=== PATIENT | female | born 1965 | race African-American/Black ===

== ENCOUNTER 2018-08-17 00:51 | Inpatient (IN) | payer MEDICARE, MEDICAID ==
[2018-08-17 02:23] LABS: ADD MAN DIFF? NO
[2018-08-17 02:24] LABS: WHITE BLOOD COUNT 4.7 10^3/ul (4.8-10.8)
[2018-08-17 02:24] LABS: BASOPHILS % 0.8 % (0.0-2.0); EOSINOPHILS # 0.5 10^3/ul (0.0-0.5); EOSINOPHILS % 10.8 % (0.0-7.0); HEMATOCRIT 29.4 % (37.0-47.0); HEMOGLOBIN 9.1 g/dl (12.0-16.0); LYMPHOCYTES # 0.6 10^3/ul (0.8-2.9); LYMPHOCYTES % 12.9 % (15.0-51.0); MEAN CORPUSCULAR HEMOGLOBIN 27.7 pg (29.0-33.0); MEAN CORPUSCULAR VOLUME 89.6 fl (82.0-101.0); MEAN PLATELET VOLUME 9.4 fl (7.4-10.4); MONOCYTE # 0.5 10^3/ul (0.3-0.9); MONOCYTES % 9.7 % (0.0-11.0); NEUTROPHIL # 3.1 10^3/ul (1.6-7.5); NEUTROPHILS % 65.2 % (39.0-77.0); PLATELET COUNT 135 10^3/UL (140-415); RED BLOOD COUNT 3.28 10^6/ul (4.20-5.40); RED CELL DISTRIBUTION WIDTH 21.4 % (11.5-14.5)
[2018-08-17 02:42] LABS: ALANINE AMINOTRANSFERASE 22 IU/L (13-69); ALBUMIN 4.4 g/dl (3.3-4.9); ALBUMIN/GLOBULIN RATIO 1.22; ALKALINE PHOSPHATASE 240 IU/L (42-121); ANION GAP 24 (5-13); ASPARTATE AMINO TRANSFERASE 26 IU/L (15-46); BILIRUBIN,INDIRECT 0.3 mg/dl (0-1.1); BILIRUBIN,TOTAL 0.3 mg/dl (0.2-1.3); BLOOD UREA NITROGEN 93 mg/dl (7-20); CALCIUM 9.2 mg/dl (8.4-10.2); CARBON DIOXIDE 20 mmol/L (21-31); CHLORIDE 97 mmol/L (97-110); CREATININE 12.21 mg/dl (0.44-1.00); Estimated GFR 4 mL/min (>60); GLUCOSE 94 mg/dl (70-220); POTASSIUM 5.7 mmol/L (3.5-5.1); SODIUM 141 mmol/L (135-144)
[2018-08-17 02:43] LABS: INR 1.36; PROTIME 16.9 Sec (11.9-14.9); PT RATIO 1.3
[2018-08-17 02:44] LABS: PARTIAL THROMBOPLASTIN TIME 40.8 Sec (23.0-35.0)
[2018-08-17 02:53] LABS: TROPONIN-I 0.106 ng/ml (0.000-0.120)
[2018-08-17 03:11] LABS: B-TYPE NATRIURETIC PEPTIDE 100000 PG/ML (0-125)
[2018-08-17] MEDS: LORAZEPAM 1 MG TAB PO (03:49)
[2018-08-17] MEDS ORDERED: ONDANSETRON 4 MG INJ IV (05:00)
[2018-08-17 05:53] LABS: ADD MAN DIFF? NO
[2018-08-17 06:03] LABS: BASOPHIL # 0.1 10^3/ul (0.0-0.1); BASOPHILS % 1.3 % (0.0-2.0); EOSINOPHILS # 0.5 10^3/ul (0.0-0.5); EOSINOPHILS % 10.9 % (0.0-7.0); HEMATOCRIT 28.4 % (37.0-47.0); LYMPHOCYTES # 0.7 10^3/ul (0.8-2.9); LYMPHOCYTES % 15.8 % (15.0-51.0); MEAN CORPUSCULAR HEMOGLOBIN 28.3 pg (29.0-33.0); MEAN CORPUSCULAR HGB CONC 31.7 g/dl (32.0-37.0); MEAN CORPUSCULAR VOLUME 89.3 fl (82.0-101.0); MEAN PLATELET VOLUME 10.2 fl (7.4-10.4); MONOCYTE # 0.5 10^3/ul (0.3-0.9); MONOCYTES % 11.1 % (0.0-11.0); NEUTROPHIL # 2.7 10^3/ul (1.6-7.5); NEUTROPHILS % 60.7 % (39.0-77.0); PLATELET COUNT 147 10^3/UL (140-415); RED BLOOD COUNT 3.18 10^6/ul (4.20-5.40); RED CELL DISTRIBUTION WIDTH 21.6 % (11.5-14.5)
[2018-08-17 06:03] LABS: WHITE BLOOD COUNT 4.5 10^3/ul (4.8-10.8)
[2018-08-17 06:16] LABS: CHOLESTEROL 76 mg/dl (100-200)
[2018-08-17 06:16] LABS: HDL CHOLESTEROL 25 mg/dl (37-92); LDL CHOLESTEROL,CALCULATED 29 mg/dl; TRIGLYCERIDES 108 mg/dl (0-149)
[2018-08-17 06:19] LABS: ALANINE AMINOTRANSFERASE 26 IU/L (13-69); ALBUMIN 4.2 g/dl (3.3-4.9); ALKALINE PHOSPHATASE 237 IU/L (42-121); ANION GAP 25 (5-13); ASPARTATE AMINO TRANSFERASE 26 IU/L (15-46); BILIRUBIN,INDIRECT 0.3 mg/dl (0-1.1); BILIRUBIN,TOTAL 0.3 mg/dl (0.2-1.3); BLOOD UREA NITROGEN 96 mg/dl (7-20); CALCIUM 9.2 mg/dl (8.4-10.2); CARBON DIOXIDE 20 mmol/L (21-31); CHLORIDE 96 mmol/L (97-110); CREATININE 12.21 mg/dl (0.44-1.00); Estimated GFR 4 mL/min (>60); GLUCOSE 93 mg/dl (70-220); POTASSIUM 5.6 mmol/L (3.5-5.1); SODIUM 141 mmol/L (135-144); TOTAL PROTEIN 7.7 g/dl (6.1-8.1)
[2018-08-17 06:29] LABS: PHOSPHORUS 10.4 mg/dl (2.5-4.9)
[2018-08-17 06:46] LABS: IRON 56 ug/dl (35-150)
[2018-08-17 06:52] LABS: MAGNESIUM 2.4 mg/dl (1.7-2.5)
[2018-08-17 06:55] LABS: % IRON SATURATION 22 % SAT (22-52); TOTAL IRON BINDING CAPACITY 259 ug/dl (241-421)
[2018-08-17] MEDS: HEPARIN 5,000 UNIT/1 ML VIAL SC ×3 (06:59→21:50)
[2018-08-17] MEDS: LIDOCAINE 1% (MPF) 5 ML VIAL SC (07:30)
[2018-08-17 07:56] LABS: HEMOGLOBIN A1C 5.7 % (0-5.9)
[2018-08-17] MEDS ORDERED: LIDOCAINE 1% (MPF) 30 ML INJ INJ (09:00)
[2018-08-17] MEDS: LORAZEPAM 2 MG INJ IV (09:24)
[2018-08-17] MEDS: LABETALOL HCL 20MG INJ IV (09:24)
[2018-08-17 09:40] LABS: CREATINE KINASE 69 IU/L (23-200)
[2018-08-17] MEDS: AMLODIPINE 5 MG TAB PO (09:51)
[2018-08-17 09:54] LABS: CK INDEX 2.5; TROPONIN-I 0.104 ng/ml (0.000-0.120)
[2018-08-17 17:06] LABS: CREATINE KINASE 67 IU/L (23-200)
[2018-08-17 17:20] LABS: TROPONIN-I 0.097 ng/ml (0.000-0.120)
[2018-08-17 20:53] LABS: HEPATITIS B SURFACE ANTIGEN NEGATIVE (NEGATIVE)
[2018-08-17 21:37] LABS: HEPATITIS B SURFACE ANTIBODY POSITIVE (NEGATIVE)
[2018-08-17] MEDS ORDERED: LORAZEPAM 2 MG INJ IV (23:00)
[2018-08-18] MEDS ORDERED: LORAZEPAM 2 MG INJ IM (04:00)
[2018-08-18] MEDS ORDERED: LORAZEPAM 0.5 MG TAB PO (04:00)
[2018-08-18] MEDS: DIPHENHYDRAMINE 50 MG CAP PO ×2 (04:04→12:18)
[2018-08-18] MEDS: HEPARIN 5,000 UNIT/1 ML VIAL SC ×3 (06:19→21:49)
[2018-08-18] MEDS: AMLODIPINE 5 MG TAB PO (08:21)
[2018-08-18] MEDS: LORAZEPAM 1 MG TAB PO (13:11)
[2018-08-18 14:26] LABS: ADD MAN DIFF? NO
[2018-08-18 14:28] LABS: ABNORMAL IP MESSAGE 1; BASOPHIL # 0.1 10^3/ul (0.0-0.1); EOSINOPHILS # 0.7 10^3/ul (0.0-0.5); EOSINOPHILS % 13.1 % (0.0-7.0); HEMATOCRIT 29.5 % (37.0-47.0); HEMOGLOBIN 9.3 g/dl (12.0-16.0); LYMPHOCYTES # 0.6 10^3/ul (0.8-2.9); LYMPHOCYTES % 11.9 % (15.0-51.0); MEAN CORPUSCULAR HEMOGLOBIN 28.3 pg (29.0-33.0); MEAN CORPUSCULAR HGB CONC 31.5 g/dl (32.0-37.0); MEAN CORPUSCULAR VOLUME 89.7 fl (82.0-101.0); MONOCYTE # 0.5 10^3/ul (0.3-0.9); MONOCYTES % 10.3 % (0.0-11.0); NEUTROPHIL # 3.2 10^3/ul (1.6-7.5); NEUTROPHILS % 63.3 % (39.0-77.0); PLATELET COUNT 158 10^3/UL (140-415); RED BLOOD COUNT 3.29 10^6/ul (4.20-5.40); RED CELL DISTRIBUTION WIDTH 21.5 % (11.5-14.5)
[2018-08-18 14:30] LABS: POSITIVE DIFF @See below
[2018-08-18 14:47] LABS: ALANINE AMINOTRANSFERASE 26 IU/L (13-69); ALBUMIN 4.5 g/dl (3.3-4.9); ALBUMIN/GLOBULIN RATIO 1.25; ALKALINE PHOSPHATASE 232 IU/L (42-121); ANION GAP 18 (5-13); ASPARTATE AMINO TRANSFERASE 23 IU/L (15-46); BILIRUBIN,INDIRECT 0.3 mg/dl (0-1.1); BILIRUBIN,TOTAL 0.3 mg/dl (0.2-1.3); BLOOD UREA NITROGEN 62 mg/dl (7-20); CALCIUM 9.1 mg/dl (8.4-10.2); CARBON DIOXIDE 25 mmol/L (21-31); CHLORIDE 96 mmol/L (97-110); CREATININE 8.81 mg/dl (0.44-1.00); Estimated GFR 6 mL/min (>60); GLUCOSE 163 mg/dl (70-220); INR 1.32; MAGNESIUM 2.2 mg/dl (1.7-2.5); POTASSIUM 4.4 mmol/L (3.5-5.1); PROTIME 16.5 Sec (11.9-14.9); PT RATIO 1.3; SODIUM 139 mmol/L (135-144); TOTAL PROTEIN 8.1 g/dl (6.1-8.1)
[2018-08-18 18:01] LABS: ADD MAN DIFF? NO
[2018-08-18 18:08] LABS: WHITE BLOOD COUNT 4.2 10^3/ul (4.8-10.8)
[2018-08-18 18:08] LABS: ABNORMAL IP MESSAGE 1; BASOPHIL # 0.1 10^3/ul (0.0-0.1); BASOPHILS % 1.2 % (0.0-2.0); EOSINOPHILS # 0.5 10^3/ul (0.0-0.5); EOSINOPHILS % 12.4 % (0.0-7.0); HEMATOCRIT 28.9 % (37.0-47.0); LYMPHOCYTES # 0.5 10^3/ul (0.8-2.9); LYMPHOCYTES % 11.7 % (15.0-51.0); MEAN CORPUSCULAR HGB CONC 31.1 g/dl (32.0-37.0); MEAN PLATELET VOLUME 9.6 fl (7.4-10.4); MONOCYTE # 0.5 10^3/ul (0.3-0.9); MONOCYTES % 12.2 % (0.0-11.0); NEUTROPHIL # 2.6 10^3/ul (1.6-7.5); NEUTROPHILS % 62.3 % (39.0-77.0); PLATELET COUNT 141 10^3/UL (140-415); RED BLOOD COUNT 3.21 10^6/ul (4.20-5.40); RED CELL DISTRIBUTION WIDTH 21.5 % (11.5-14.5)
[2018-08-18 18:27] LABS: ANION GAP 12 (5-13); BLOOD UREA NITROGEN 21 mg/dl (7-20); CALCIUM 9.3 mg/dl (8.4-10.2); CARBON DIOXIDE 29 mmol/L (21-31); CHLORIDE 100 mmol/L (97-110); CREATININE 3.26 mg/dl (0.44-1.00); Estimated GFR 18 mL/min (>60); GLUCOSE 107 mg/dl (70-220); PHOSPHORUS 3.1 mg/dl (2.5-4.9); POTASSIUM 4.2 mmol/L (3.5-5.1); SODIUM 141 mmol/L (135-144)
[2018-08-18 18:29] LABS: MAGNESIUM 2.1 mg/dl (1.7-2.5)
[2018-08-19] MEDS: HEPARIN 5,000 UNIT/1 ML VIAL SC ×3 (06:13→20:47)
[2018-08-19] MEDS: AMLODIPINE 5 MG TAB PO (09:37)
[2018-08-19] MEDS: LORAZEPAM 1 MG TAB PO (20:13)
[2018-08-19] MEDS: DIPHENHYDRAMINE 50 MG CAP PO (21:17)
[2018-08-20] MEDS: HEPARIN 5,000 UNIT/1 ML VIAL SC ×3 (06:23→21:40)
[2018-08-20] MEDS: LORAZEPAM 1 MG TAB PO ×2 (06:55→21:38)
[2018-08-20] MEDS: ACETAMINOPHEN 325 MG TAB PO (06:55)
[2018-08-20] MEDS: AMLODIPINE 5 MG TAB PO (08:17)
[2018-08-20] MEDS: DIPHENHYDRAMINE 50 MG CAP PO (10:37)
[2018-08-20 14:24] LABS: WHITE BLOOD COUNT 4.3 10^3/ul (4.8-10.8)
[2018-08-20 14:24] LABS: ABNORMAL IP MESSAGE 1; ADD MAN DIFF? NO; BASOPHILS % 0.5 % (0.0-2.0); EOSINOPHILS # 0.7 10^3/ul (0.0-0.5); EOSINOPHILS % 16.4 % (0.0-7.0); HEMATOCRIT 29.4 % (37.0-47.0); HEMOGLOBIN 9.1 g/dl (12.0-16.0); LYMPHOCYTES # 0.4 10^3/ul (0.8-2.9); LYMPHOCYTES % 10.1 % (15.0-51.0); MEAN CORPUSCULAR HEMOGLOBIN 28.4 pg (29.0-33.0); MEAN CORPUSCULAR VOLUME 91.9 fl (82.0-101.0); MEAN PLATELET VOLUME 9.3 fl (7.4-10.4); MONOCYTE # 0.5 10^3/ul (0.3-0.9); MONOCYTES % 10.5 % (0.0-11.0); NEUTROPHIL # 2.7 10^3/ul (1.6-7.5); NEUTROPHILS % 62.3 % (39.0-77.0); PLATELET COUNT 130 10^3/UL (140-415); RED CELL DISTRIBUTION WIDTH 21.7 % (11.5-14.5)
[2018-08-20 14:29] LABS: POSITIVE DIFF @See below
[2018-08-20 14:46] LABS: ALANINE AMINOTRANSFERASE 22 IU/L (13-69); ALBUMIN 4.4 g/dl (3.3-4.9); ALBUMIN/GLOBULIN RATIO 1.07; ALKALINE PHOSPHATASE 227 IU/L (42-121); ANION GAP 15 (5-13); ASPARTATE AMINO TRANSFERASE 26 IU/L (15-46); BILIRUBIN,INDIRECT 0.6 mg/dl (0-1.1); BILIRUBIN,TOTAL 0.6 mg/dl (0.2-1.3); BLOOD UREA NITROGEN 30 mg/dl (7-20); CALCIUM 9.3 mg/dl (8.4-10.2); CARBON DIOXIDE 31 mmol/L (21-31); CHLORIDE 95 mmol/L (97-110); CREATININE 3.98 mg/dl (0.44-1.00); Estimated GFR 14 mL/min (>60); GLUCOSE 119 mg/dl (70-220); INR 1.13; POTASSIUM 3.8 mmol/L (3.5-5.1); PROTIME 14.6 Sec (11.9-14.9); PT RATIO 1.1; SODIUM 141 mmol/L (135-144); TOTAL PROTEIN 8.5 g/dl (6.1-8.1)
[2018-08-21] MEDS: DIPHENHYDRAMINE 50 MG CAP PO (00:40)
[2018-08-21] MEDS: HEPARIN 5,000 UNIT/1 ML VIAL SC ×3 (05:51→21:06)
[2018-08-21] MEDS: ACETAMINOPHEN 325 MG TAB PO (06:24)
[2018-08-21] MEDS: AMLODIPINE 5 MG TAB PO (09:45)
[2018-08-21] MEDS: LORAZEPAM 1 MG TAB PO (09:45)
[2018-08-22 01:52] LABS: PHOSPHORUS 7.8 mg/dl (2.5-4.9)
[2018-08-22 01:52] LABS: MAGNESIUM 2.2 mg/dl (1.7-2.5)
[2018-08-22 02:12] LABS: ANION GAP 15 (5-13); BLOOD UREA NITROGEN 67 mg/dl (7-20); CALCIUM 9.1 mg/dl (8.4-10.2); CARBON DIOXIDE 24 mmol/L (21-31); CHLORIDE 99 mmol/L (97-110); CREATININE 6.66 mg/dl (0.44-1.00); Estimated GFR 8 mL/min (>60); GLUCOSE 127 mg/dl (70-220); POTASSIUM 4.8 mmol/L (3.5-5.1); SODIUM 138 mmol/L (135-144)
[2018-08-22] MEDS: DIPHENHYDRAMINE 50 MG CAP PO ×3 (02:29→21:19)
[2018-08-22 06:09] LABS: INR 1.29; PROTIME 16.2 Sec (11.9-14.9); PT RATIO 1.3
[2018-08-22] MEDS: HEPARIN 5,000 UNIT/1 ML VIAL SC ×3 (06:52→21:21)
[2018-08-22] MEDS: AMLODIPINE 5 MG TAB PO ×2 (07:51→21:19)
[2018-08-22] MEDS: LORAZEPAM 1 MG TAB PO (12:24)
[2018-08-22] MEDS: traMADol 50 MG TAB PO ×2 (13:32→21:20)
[2018-08-22] MEDS: ALPRAZOLAM 0.5 MG TAB PO (16:02)
[2018-08-22] MEDS: SEVELAMER CARBONATE 800 MG TABLET PO (17:40)
[2018-08-22] MEDS: BISACODYL (EC) 5 MG TAB PO (17:45)
[2018-08-22] MEDS: DOCUSATE SODIUM 100 MG CAP PO (17:45)
[2018-08-22] MEDS: PERMETHRIN 5% 60 GM CR TOP (21:22)
[2018-08-23] MEDS: DIPHENHYDRAMINE 50 MG CAP PO ×2 (03:31→12:09)
[2018-08-23] MEDS: traMADol 50 MG TAB PO (03:31)
[2018-08-23] MEDS: HEPARIN 5,000 UNIT/1 ML VIAL SC ×3 (06:01→21:37)
[2018-08-23] MEDS: AMLODIPINE 5 MG TAB PO ×2 (09:00→21:37)
[2018-08-23] MEDS: SEVELAMER CARBONATE 800 MG TABLET PO ×3 (09:10→17:38)
[2018-08-23] MEDS: ALPRAZOLAM 0.5 MG TAB PO (13:18)
[2018-08-23] MEDS: LIDOCAINE 1% (MPF) 5 ML VIAL SC (15:25)
[2018-08-23 16:06] LABS: HAAIG REFLEX REFLEX FILED
[2018-08-23 17:13] LABS: HEPATITIS B SURFACE ANTIGEN NEGATIVE (NEGATIVE)
[2018-08-23 17:31] LABS: HEPATITIS B CORE ANTIBODY NEGATIVE (NEGATIVE); HEPATITIS C VIRAL ANTIBODY NEGATIVE (NEGATIVE)
[2018-08-23 21:10] LABS: TROPONIN-I 0.065 ng/ml (0.000-0.120)
[2018-08-24] MEDS: ALPRAZOLAM 0.5 MG TAB PO (00:20)
[2018-08-24] MEDS: DIPHENHYDRAMINE 50 MG CAP PO (00:20)
[2018-08-24] MEDS: HEPARIN 5,000 UNIT/1 ML VIAL SC ×3 (05:24→21:52)
[2018-08-24] MEDS: AMLODIPINE 5 MG TAB PO ×3 (09:00→20:46)
[2018-08-24] MEDS: SEVELAMER CARBONATE 800 MG TABLET PO ×3 (10:13→17:34)
[2018-08-24 16:26] LABS: ADD MAN DIFF? NO
[2018-08-24 16:29] LABS: WHITE BLOOD COUNT 4.4 10^3/ul (4.8-10.8)
[2018-08-24 16:29] LABS: ABNORMAL IP MESSAGE 1; BASOPHIL # 0.1 10^3/ul (0.0-0.1); BASOPHILS % 1.6 % (0.0-2.0); EOSINOPHILS # 0.6 10^3/ul (0.0-0.5); EOSINOPHILS % 14.1 % (0.0-7.0); HEMATOCRIT 27.1 % (37.0-47.0); HEMOGLOBIN 8.8 g/dl (12.0-16.0); LYMPHOCYTES # 0.6 10^3/ul (0.8-2.9); LYMPHOCYTES % 12.5 % (15.0-51.0); MEAN CORPUSCULAR HEMOGLOBIN 28.7 pg (29.0-33.0); MEAN CORPUSCULAR HGB CONC 32.5 g/dl (32.0-37.0); MEAN CORPUSCULAR VOLUME 88.3 fl (82.0-101.0); MONOCYTE # 0.4 10^3/ul (0.3-0.9); MONOCYTES % 9.1 % (0.0-11.0); NEUTROPHIL # 2.8 10^3/ul (1.6-7.5); NEUTROPHILS % 62.5 % (39.0-77.0); PLATELET COUNT 160 10^3/UL (140-415); RED BLOOD COUNT 3.07 10^6/ul (4.20-5.40)
[2018-08-24 16:32] LABS: POSITIVE DIFF @See below
[2018-08-24 16:50] LABS: ANION GAP 23 (5-13); BLOOD UREA NITROGEN 120 mg/dl (7-20); CALCIUM 8.8 mg/dl (8.4-10.2); CARBON DIOXIDE 18 mmol/L (21-31); CHLORIDE 95 mmol/L (97-110); CREATININE 9.14 mg/dl (0.44-1.00); Estimated GFR 5 mL/min (>60); GLUCOSE 108 mg/dl (70-220); MAGNESIUM 2.5 mg/dl (1.7-2.5); POTASSIUM 5.7 mmol/L (3.5-5.1); SODIUM 136 mmol/L (135-144)
[2018-08-24 16:56] LABS: PHOSPHORUS 11.1 mg/dl (2.5-4.9)
[2018-08-25] MEDS: ALPRAZOLAM 0.5 MG TAB PO (00:32)
[2018-08-25] MEDS: HEPARIN 5,000 UNIT/1 ML VIAL SC ×3 (06:00→22:23)
[2018-08-25] MEDS: SEVELAMER CARBONATE 800 MG TABLET PO ×2 (08:00→12:17)
[2018-08-25] MEDS: AMLODIPINE 5 MG TAB PO (09:59)
[2018-08-25] MEDS: METOPROLOL 50 MG TAB PO (12:30)
[2018-08-25] MEDS: SEVELAMER CARBONATE 0.8 GM PKT PO (17:33)
[2018-08-25] MEDS: BUSPIRONE 5 MG TAB PO (21:45)
[2018-08-25] MEDS: MELATONIN 5 MG TABLET PO (21:45)
[2018-08-26] MEDS: AMLODIPINE 5 MG TAB PO ×3 (04:02→20:24)
[2018-08-26] MEDS: HEPARIN 5,000 UNIT/1 ML VIAL SC ×3 (06:37→22:11)
[2018-08-26 06:43] LABS: ADD MAN DIFF? NO
[2018-08-26 06:47] LABS: ABNORMAL IP MESSAGE 1; BASOPHIL # 0.1 10^3/ul (0.0-0.1); BASOPHILS % 1.6 % (0.0-2.0); EOSINOPHILS # 0.5 10^3/ul (0.0-0.5); EOSINOPHILS % 13.9 % (0.0-7.0); HEMATOCRIT 31.8 % (37.0-47.0); HEMOGLOBIN 9.6 g/dl (12.0-16.0); LYMPHOCYTES # 0.5 10^3/ul (0.8-2.9); LYMPHOCYTES % 14.2 % (15.0-51.0); MEAN CORPUSCULAR HEMOGLOBIN 27.7 pg (29.0-33.0); MEAN CORPUSCULAR HGB CONC 30.2 g/dl (32.0-37.0); MEAN CORPUSCULAR VOLUME 91.9 fl (82.0-101.0); MEAN PLATELET VOLUME 10.3 fl (7.4-10.4); MONOCYTE # 0.5 10^3/ul (0.3-0.9); MONOCYTES % 14.7 % (0.0-11.0); NEUTROPHILS % 55.3 % (39.0-77.0); PLATELET COUNT 133 10^3/UL (140-415); RED BLOOD COUNT 3.46 10^6/ul (4.20-5.40); RED CELL DISTRIBUTION WIDTH 21.8 % (11.5-14.5)
[2018-08-26 06:47] LABS: WHITE BLOOD COUNT 3.7 10^3/ul (4.8-10.8)
[2018-08-26 07:16] LABS: ANION GAP 14 (5-13); BLOOD UREA NITROGEN 39 mg/dl (7-20); CALCIUM 9.3 mg/dl (8.4-10.2); CARBON DIOXIDE 25 mmol/L (21-31); CHLORIDE 101 mmol/L (97-110); CREATININE 3.66 mg/dl (0.44-1.00); Estimated GFR 16 mL/min (>60); GLUCOSE 96 mg/dl (70-220); SODIUM 140 mmol/L (135-144)
[2018-08-26] MEDS: BUSPIRONE 5 MG TAB PO ×2 (08:24→20:23)
[2018-08-26] MEDS: SEVELAMER CARBONATE 0.8 GM PKT PO ×3 (08:24→17:22)
[2018-08-26] MEDS: METOPROLOL 50 MG TAB PO (08:24)
[2018-08-26] MEDS: ESCITALOPRAM 10 MG TAB PO (08:24)
[2018-08-26] MEDS: traMADol 50 MG TAB PO ×2 (10:02→20:24)
[2018-08-26] MEDS: DIPHENHYDRAMINE 25 MG CAP PO ×3 (10:02→22:11)
[2018-08-26] MEDS: ALPRAZOLAM 0.5 MG TAB PO (10:50)
[2018-08-26] MEDS: MELATONIN 5 MG TABLET PO (20:24)
[2018-08-27] MEDS: LEVETIRACETAM 500 MG TAB PO ×3 (00:30→21:35)
[2018-08-27] MEDS: traMADol 50 MG TAB PO (03:37)
[2018-08-27] MEDS: HEPARIN 5,000 UNIT/1 ML VIAL SC ×3 (05:10→21:37)
[2018-08-27] MEDS: AMLODIPINE 5 MG TAB PO ×2 (09:00→21:35)
[2018-08-27] MEDS: METOPROLOL 50 MG TAB PO (09:00)
[2018-08-27] MEDS: SEVELAMER CARBONATE 0.8 GM PKT PO ×3 (09:06→17:55)
[2018-08-27] MEDS: BUSPIRONE 5 MG TAB PO ×2 (09:07→21:35)
[2018-08-27] MEDS: ESCITALOPRAM 10 MG TAB PO (09:07)
[2018-08-27] MEDS ORDERED: DIPHENHYDRAMINE 50 MG INJ IV (09:30)
[2018-08-27] MEDS: ALPRAZOLAM 0.5 MG TAB PO (12:55)
[2018-08-27 13:57] LABS: ADD MAN DIFF? NO
[2018-08-27 13:58] LABS: WHITE BLOOD COUNT 3.1 10^3/ul (4.8-10.8)
[2018-08-27 13:58] LABS: ABNORMAL IP MESSAGE 1; BASOPHILS % 1.3 % (0.0-2.0); EOSINOPHILS # 0.2 10^3/ul (0.0-0.5); EOSINOPHILS % 5.4 % (0.0-7.0); HEMOGLOBIN 8.6 g/dl (12.0-16.0); LYMPHOCYTES # 0.3 10^3/ul (0.8-2.9); LYMPHOCYTES % 10.9 % (15.0-51.0); MEAN CORPUSCULAR HEMOGLOBIN 28.3 pg (29.0-33.0); MEAN CORPUSCULAR HGB CONC 30.7 g/dl (32.0-37.0); MEAN CORPUSCULAR VOLUME 92.1 fl (82.0-101.0); MEAN PLATELET VOLUME 9.2 fl (7.4-10.4); MONOCYTE # 0.4 10^3/ul (0.3-0.9); MONOCYTES % 12.2 % (0.0-11.0); NEUTROPHIL # 2.2 10^3/ul (1.6-7.5); NEUTROPHILS % 69.9 % (39.0-77.0); PLATELET COUNT 147 10^3/UL (140-415); RED BLOOD COUNT 3.04 10^6/ul (4.20-5.40); RED CELL DISTRIBUTION WIDTH 21.2 % (11.5-14.5)
[2018-08-27 13:59] LABS: POSITIVE DIFF @See below
[2018-08-27 14:16] LABS: ANION GAP 14 (5-13); BLOOD UREA NITROGEN 39 mg/dl (7-20); CALCIUM 9.2 mg/dl (8.4-10.2); CARBON DIOXIDE 27 mmol/L (21-31); CHLORIDE 98 mmol/L (97-110); Estimated GFR 12 mL/min (>60); GLUCOSE 174 mg/dl (70-220); POTASSIUM 4.3 mmol/L (3.5-5.1); SODIUM 139 mmol/L (135-144)
[2018-08-27] MEDS: MELATONIN 5 MG TABLET PO (21:35)
[2018-08-28] MEDS: HEPARIN 5,000 UNIT/1 ML VIAL SC ×3 (06:00→20:52)
[2018-08-28] MEDS: SEVELAMER CARBONATE 0.8 GM PKT PO ×4 (08:00→17:46)
[2018-08-28] MEDS: LEVETIRACETAM 500 MG TAB PO ×2 (08:39→20:46)
[2018-08-28] MEDS: ESCITALOPRAM 10 MG TAB PO (08:40)
[2018-08-28] MEDS: BUSPIRONE 5 MG TAB PO ×2 (08:40→20:46)
[2018-08-28] MEDS: METOPROLOL 50 MG TAB PO (08:41)
[2018-08-28] MEDS: AMLODIPINE 5 MG TAB PO ×2 (08:41→20:46)
[2018-08-28] MEDS: ALPRAZOLAM 0.5 MG TAB PO ×2 (10:27→20:46)
[2018-08-28] MEDS: traMADol 50 MG TAB PO (14:11)
[2018-08-28] MEDS: EPOETIN ALFA-EPBX (NON-ESRD 10,000 UNIT/ML VIAL SC (17:45)
[2018-08-28] MEDS: MELATONIN 5 MG TABLET PO (20:46)
[2018-08-29] MEDS: traMADol 50 MG TAB PO (00:21)
[2018-08-29] MEDS: HEPARIN 5,000 UNIT/1 ML VIAL SC ×3 (05:35→21:05)
[2018-08-29] MEDS: SEVELAMER CARBONATE 0.8 GM PKT PO ×3 (08:00→17:12)
[2018-08-29] MEDS: ALPRAZOLAM 0.5 MG TAB PO (09:37)
[2018-08-29] MEDS: BUSPIRONE 5 MG TAB PO ×2 (13:31→21:03)
[2018-08-29] MEDS: AMLODIPINE 5 MG TAB PO ×2 (13:31→21:03)
[2018-08-29] MEDS: LEVETIRACETAM 500 MG TAB PO ×2 (13:32→21:03)
[2018-08-29] MEDS: ESCITALOPRAM 10 MG TAB PO (13:32)
[2018-08-29] MEDS: METOPROLOL 50 MG TAB PO (13:32)
[2018-08-29] MEDS: MELATONIN 5 MG TABLET PO (21:03)
[2018-08-30] MEDS: HEPARIN 5,000 UNIT/1 ML VIAL SC ×3 (05:18→21:13)
[2018-08-30] MEDS: SEVELAMER CARBONATE 0.8 GM PKT PO ×3 (09:09→18:00)
[2018-08-30] MEDS: BUSPIRONE 5 MG TAB PO ×2 (09:09→21:11)
[2018-08-30] MEDS: AMLODIPINE 5 MG TAB PO ×2 (09:10→21:00)
[2018-08-30] MEDS: LEVETIRACETAM 500 MG TAB PO ×2 (09:10→21:11)
[2018-08-30] MEDS: METOPROLOL 50 MG TAB PO (09:10)
[2018-08-30] MEDS: ESCITALOPRAM 10 MG TAB PO (09:10)
[2018-08-30] MEDS: traMADol 50 MG TAB PO (18:34)
[2018-08-30] MEDS: MELATONIN 5 MG TABLET PO (21:11)
[2018-08-30] MEDS: ALPRAZOLAM 0.5 MG TAB PO (22:43)
[2018-08-30] MEDS: DIPHENHYDRAMINE 50 MG CAP PO (23:46)
[2018-08-31] MEDS: HEPARIN 5,000 UNIT/1 ML VIAL SC ×3 (05:18→21:40)
[2018-08-31] MEDS: SEVELAMER CARBONATE 0.8 GM PKT PO ×3 (08:00→17:21)
[2018-08-31] MEDS: BUSPIRONE 5 MG TAB PO ×2 (08:34→20:03)
[2018-08-31] MEDS: LEVETIRACETAM 500 MG TAB PO ×2 (08:34→20:03)
[2018-08-31] MEDS: ESCITALOPRAM 10 MG TAB PO (08:34)
[2018-08-31] MEDS: METOPROLOL 50 MG TAB PO (08:34)
[2018-08-31] MEDS: AMLODIPINE 5 MG TAB PO ×2 (08:35→20:12)
[2018-08-31 10:11] LABS: ADD MAN DIFF? NO
[2018-08-31 10:19] LABS: ABNORMAL IP MESSAGE 1; BASOPHILS % 0.8 % (0.0-2.0); EOSINOPHILS % 0.4 % (0.0-7.0); HEMATOCRIT 28.5 % (37.0-47.0); HEMOGLOBIN 8.9 g/dl (12.0-16.0); LYMPHOCYTES # 0.5 10^3/ul (0.8-2.9); LYMPHOCYTES % 9.9 % (15.0-51.0); MEAN CORPUSCULAR HEMOGLOBIN 28.3 pg (29.0-33.0); MEAN CORPUSCULAR HGB CONC 31.2 g/dl (32.0-37.0); MEAN CORPUSCULAR VOLUME 90.5 fl (82.0-101.0); MEAN PLATELET VOLUME 9.7 fl (7.4-10.4); MONOCYTE # 0.7 10^3/ul (0.3-0.9); MONOCYTES % 13.2 % (0.0-11.0); NEUTROPHIL # 3.9 10^3/ul (1.6-7.5); NEUTROPHILS % 75.1 % (39.0-77.0); PLATELET COUNT 185 10^3/UL (140-415); RED BLOOD COUNT 3.15 10^6/ul (4.20-5.40); RED CELL DISTRIBUTION WIDTH 21.2 % (11.5-14.5)
[2018-08-31 10:19] LABS: WHITE BLOOD COUNT 5.1 10^3/ul (4.8-10.8)
[2018-08-31 10:21] LABS: POSITIVE DIFF @See below
[2018-08-31 10:36] LABS: ANION GAP 16 (5-13); BLOOD UREA NITROGEN 53 mg/dl (7-20); CALCIUM 9.4 mg/dl (8.4-10.2); CARBON DIOXIDE 22 mmol/L (21-31); CHLORIDE 99 mmol/L (97-110); CREATININE 6.54 mg/dl (0.44-1.00); Estimated GFR 8 mL/min (>60); GLUCOSE 112 mg/dl (70-220); SODIUM 137 mmol/L (135-144)
[2018-08-31 10:38] LABS: POTASSIUM 5.3 mmol/L (3.5-5.1)
[2018-08-31] MEDS: EPOETIN ALFA-EPBX (NON-ESRD 10,000 UNIT/ML VIAL SC (18:03)
[2018-08-31] MEDS: ALPRAZOLAM 0.5 MG TAB PO (18:52)
[2018-08-31] MEDS: MELATONIN 5 MG TABLET PO (20:03)
[2018-08-31] MEDS: DIPHENHYDRAMINE 50 MG INJ IV (20:03)
[2018-08-31] MEDS: ZOLPIDEM 5 MG TAB PO (22:17)
[2018-09-01] MEDS: hydrALAzine 20 MG INJ IV (02:49)
[2018-09-01] MEDS: ACETAMINOPHEN 325 MG TAB PO (02:58)
[2018-09-01] MEDS: ALPRAZOLAM 0.5 MG TAB PO (03:44)
[2018-09-01] MEDS: HEPARIN 5,000 UNIT/1 ML VIAL SC ×2 (05:07→17:45)
[2018-09-01] MEDS: SEVELAMER CARBONATE 0.8 GM PKT PO ×3 (08:00→17:46)
[2018-09-01] MEDS: ESCITALOPRAM 10 MG TAB PO (08:12)
[2018-09-01] MEDS: LEVETIRACETAM 500 MG TAB PO ×2 (08:12→20:32)
[2018-09-01] MEDS: BUSPIRONE 5 MG TAB PO ×2 (08:13→20:32)
[2018-09-01] MEDS: METOPROLOL 50 MG TAB PO (08:13)
[2018-09-01] MEDS: AMLODIPINE 5 MG TAB PO ×2 (08:14→20:34)
[2018-09-01] MEDS: DOCUSATE SODIUM 100 MG CAP PO (17:00)
[2018-09-01] MEDS: MELATONIN 5 MG TABLET PO (20:32)
[2018-09-01] MEDS ORDERED: ZOLPIDEM 5 MG TAB PO (21:00)
[2018-09-01] MEDS: FLUTICASONE 0.05% 16 GM NAS SPRAY NASAL (23:54)
[2018-09-02] MEDS: ALBUTEROL/IPRATROPIUM (NEB) 3 ML AMP HHN (00:13)
[2018-09-02] MEDS: traMADol 50 MG TAB PO (00:41)
[2018-09-02] MEDS: morphine 2 MG INJ IV (01:16)
[2018-09-02] MEDS: ALPRAZOLAM 0.5 MG TAB PO ×2 (02:26→14:25)
[2018-09-02] MEDS: DOCUSATE SODIUM 100 MG CAP PO ×2 (05:37→17:52)
[2018-09-02] MEDS: HEPARIN 5,000 UNIT/1 ML VIAL SC ×2 (05:37→17:54)
[2018-09-02] MEDS: SEVELAMER CARBONATE 0.8 GM PKT PO ×4 (08:00→17:51)
[2018-09-02 08:57] LABS: ADD MAN DIFF? NO
[2018-09-02] MEDS: METOPROLOL 50 MG TAB PO (08:57)
[2018-09-02] MEDS: AMLODIPINE 5 MG TAB PO (08:58)
[2018-09-02] MEDS: LEVETIRACETAM 500 MG TAB PO ×2 (08:59→20:21)
[2018-09-02 09:00] LABS: WHITE BLOOD COUNT 5.1 10^3/ul (4.8-10.8)
[2018-09-02] MEDS: ESCITALOPRAM 10 MG TAB PO (09:00)
[2018-09-02] MEDS: BUSPIRONE 5 MG TAB PO ×2 (09:00→20:21)
[2018-09-02 09:01] LABS: ABNORMAL IP MESSAGE 1; BASOPHILS % 0.6 % (0.0-2.0); EOSINOPHILS % 0.8 % (0.0-7.0); HEMATOCRIT 27.6 % (37.0-47.0); HEMOGLOBIN 8.5 g/dl (12.0-16.0); LYMPHOCYTES # 0.4 10^3/ul (0.8-2.9); LYMPHOCYTES % 8.1 % (15.0-51.0); MEAN CORPUSCULAR HEMOGLOBIN 27.9 pg (29.0-33.0); MEAN CORPUSCULAR HGB CONC 30.8 g/dl (32.0-37.0); MEAN CORPUSCULAR VOLUME 90.5 fl (82.0-101.0); MEAN PLATELET VOLUME 10.1 fl (7.4-10.4); MONOCYTE # 0.5 10^3/ul (0.3-0.9); MONOCYTES % 9.6 % (0.0-11.0); NEUTROPHIL # 4.1 10^3/ul (1.6-7.5); NEUTROPHILS % 80.3 % (39.0-77.0); PLATELET COUNT 149 10^3/UL (140-415); RED BLOOD COUNT 3.05 10^6/ul (4.20-5.40); RED CELL DISTRIBUTION WIDTH 20.9 % (11.5-14.5)
[2018-09-02 09:13] LABS: POSITIVE DIFF @See below
[2018-09-02 09:26] LABS: ANION GAP 14 (5-13); BLOOD UREA NITROGEN 57 mg/dl (7-20); CARBON DIOXIDE 24 mmol/L (21-31); CHLORIDE 99 mmol/L (97-110); CREATININE 6.63 mg/dl (0.44-1.00); Estimated GFR 8 mL/min (>60); GLUCOSE 93 mg/dl (70-220); MAGNESIUM 2.1 mg/dl (1.7-2.5); PHOSPHORUS 5.4 mg/dl (2.5-4.9); POTASSIUM 4.9 mmol/L (3.5-5.1); SODIUM 137 mmol/L (135-144)
[2018-09-02] MEDS: EPOETIN ALFA-EPBX (NON-ESRD 10,000 UNIT/ML VIAL SC (17:53)
[2018-09-02] MEDS: NICOTINE (14 MG/24 HR) PATCH TRANSDERM (20:21)
[2018-09-02] MEDS: MELATONIN 5 MG TABLET PO (20:21)
[2018-09-03] MEDS: ALPRAZOLAM 0.5 MG TAB PO ×3 (02:17→22:23)
[2018-09-03] MEDS: ALBUTEROL/IPRATROPIUM (NEB) 3 ML AMP HHN ×3 (03:22→18:20)
[2018-09-03] MEDS: DIPHENHYDRAMINE 50 MG CAP PO (03:42)
[2018-09-03] MEDS: DOCUSATE SODIUM 100 MG CAP PO ×2 (05:49→17:00)
[2018-09-03] MEDS: HEPARIN 5,000 UNIT/1 ML VIAL SC ×2 (05:50→17:23)
[2018-09-03] MEDS: NACL 0.9% 3 ML SYG IV (08:54)
[2018-09-03] MEDS: BUSPIRONE 5 MG TAB PO ×2 (08:55→20:49)
[2018-09-03] MEDS: FLUTICASONE 0.05% 16 GM NAS SPRAY NASAL (08:55)
[2018-09-03] MEDS: ESCITALOPRAM 10 MG TAB PO (08:56)
[2018-09-03] MEDS: SEVELAMER CARBONATE 0.8 GM PKT PO ×3 (08:56→17:23)
[2018-09-03] MEDS: AMLODIPINE 10 MG TAB PO (08:56)
[2018-09-03] MEDS: METOPROLOL 50 MG TAB PO (08:56)
[2018-09-03] MEDS: LEVETIRACETAM 500 MG TAB PO ×2 (08:56→20:49)
[2018-09-03] MEDS ORDERED: VANCOMYCIN IV PER PHARMACY XX ×2 (20:30→23:00)
[2018-09-03] MEDS: MELATONIN 5 MG TABLET PO (20:49)
[2018-09-03] MEDS: VANCOMYCIN HCL 1.5 GM in SOD CHLORIDE 0.9% 250 ML IVPB (23:01)
[2018-09-04] MEDS: DOCUSATE SODIUM 100 MG CAP PO ×2 (05:00→17:00)
[2018-09-04] MEDS: HEPARIN 5,000 UNIT/1 ML VIAL SC ×2 (05:33→17:56)
[2018-09-04] MEDS: SEVELAMER CARBONATE 0.8 GM PKT PO ×3 (08:17→17:56)
[2018-09-04] MEDS: ESCITALOPRAM 10 MG TAB PO (08:17)
[2018-09-04] MEDS: BUSPIRONE 5 MG TAB PO ×2 (08:17→20:16)
[2018-09-04] MEDS: LEVETIRACETAM 500 MG TAB PO ×2 (08:17→20:16)
[2018-09-04] MEDS: AMLODIPINE 10 MG TAB PO (09:00)
[2018-09-04] MEDS: METOPROLOL 50 MG TAB PO (09:00)
[2018-09-04] MEDS: EPOETIN ALFA-EPBX (NON-ESRD 10,000 UNIT/ML VIAL SC (17:00)
[2018-09-04] MEDS: MELATONIN 5 MG TABLET PO (20:16)
[2018-09-04] MEDS: FLUTICASONE 0.05% 16 GM NAS SPRAY NASAL (20:57)
[2018-09-04] MEDS: DIPHENHYDRAMINE 50 MG CAP PO (23:26)
[2018-09-05] MEDS: DOCUSATE SODIUM 100 MG CAP PO ×2 (05:00→17:00)
[2018-09-05] MEDS: HEPARIN 5,000 UNIT/1 ML VIAL SC ×2 (05:21→17:39)
[2018-09-05] MEDS: SEVELAMER CARBONATE 0.8 GM PKT PO ×3 (08:00→17:44)
[2018-09-05] MEDS: BUSPIRONE 5 MG TAB PO ×2 (08:06→20:51)
[2018-09-05] MEDS: ALPRAZOLAM 0.5 MG TAB PO (08:06)
[2018-09-05] MEDS: LEVETIRACETAM 500 MG TAB PO ×2 (08:06→20:51)
[2018-09-05] MEDS: ESCITALOPRAM 10 MG TAB PO (08:07)
[2018-09-05] MEDS: METOPROLOL 50 MG TAB PO (09:00)
[2018-09-05] MEDS: AMLODIPINE 10 MG TAB PO (09:00)
[2018-09-05] MEDS: MELATONIN 5 MG TABLET PO (20:51)
[2018-09-06] MEDS: DOCUSATE SODIUM 100 MG CAP PO ×2 (05:00→17:04)
[2018-09-06] MEDS: HEPARIN 5,000 UNIT/1 ML VIAL SC ×2 (05:16→17:05)
[2018-09-06] MEDS: SEVELAMER CARBONATE 0.8 GM PKT PO ×3 (08:00→17:05)
[2018-09-06] MEDS: ESCITALOPRAM 10 MG TAB PO (08:41)
[2018-09-06] MEDS: BUSPIRONE 5 MG TAB PO ×2 (08:41→20:06)
[2018-09-06] MEDS: LEVETIRACETAM 500 MG TAB PO ×2 (08:41→20:06)
[2018-09-06] MEDS: METOPROLOL 50 MG TAB PO (08:42)
[2018-09-06] MEDS: AMLODIPINE 10 MG TAB PO (08:42)
[2018-09-06] MEDS: traMADol 50 MG TAB PO (09:16)
[2018-09-06] MEDS: ALPRAZOLAM 0.5 MG TAB PO ×2 (09:16→17:04)
[2018-09-06] MEDS: VANCOMYCIN 1 GM 250 ML IVPB (11:46)
[2018-09-06 12:20] LABS: VANCOMYCIN,RANDOM < 5.0 ug/ml
[2018-09-06] MEDS: DIPHENHYDRAMINE 50 MG CAP PO (17:04)
[2018-09-06] MEDS: MELATONIN 5 MG TABLET PO (20:06)
[2018-09-06] MEDS: DIPHENHYDRAMINE 50 MG INJ IM (23:27)
[2018-09-07] MEDS: ALPRAZOLAM 0.5 MG TAB PO ×3 (01:55→23:47)
[2018-09-07] MEDS: DOCUSATE SODIUM 100 MG CAP PO ×2 (05:00→17:00)
[2018-09-07] MEDS: HEPARIN 5,000 UNIT/1 ML VIAL SC ×2 (06:00→17:32)
[2018-09-07] MEDS: DIPHENHYDRAMINE 50 MG INJ IM (06:07)
[2018-09-07] MEDS: BUSPIRONE 5 MG TAB PO ×2 (09:22→20:26)
[2018-09-07] MEDS: LEVETIRACETAM 500 MG TAB PO ×2 (09:22→20:26)
[2018-09-07] MEDS: ESCITALOPRAM 10 MG TAB PO (09:22)
[2018-09-07] MEDS: SEVELAMER CARBONATE 0.8 GM PKT PO ×3 (09:22→17:32)
[2018-09-07] MEDS: AMLODIPINE 10 MG TAB PO (09:23)
[2018-09-07] MEDS: METOPROLOL 50 MG TAB PO (09:23)
[2018-09-07] MEDS: DIPHENHYDRAMINE 50 MG CAP PO (12:22)
[2018-09-07] MEDS: LIDOCAINE 1% (MPF) 5 ML VIAL SC (17:13)
[2018-09-07] MEDS: EPOETIN ALFA-EPBX (NON-ESRD 10,000 UNIT/ML VIAL SC (17:28)
[2018-09-07] MEDS: MELATONIN 5 MG TABLET PO (20:26)
[2018-09-08] MEDS: DOCUSATE SODIUM 100 MG CAP PO ×2 (05:00→17:00)
[2018-09-08] MEDS: HEPARIN 5,000 UNIT/1 ML VIAL SC ×2 (05:46→17:26)
[2018-09-08] MEDS: SEVELAMER CARBONATE 0.8 GM PKT PO ×3 (08:00→17:22)
[2018-09-08] MEDS: AMLODIPINE 10 MG TAB PO (09:00)
[2018-09-08] MEDS: METOPROLOL 50 MG TAB PO (09:00)
[2018-09-08] MEDS: BISACODYL (EC) 5 MG TAB PO (10:00)
[2018-09-08] MEDS: ESCITALOPRAM 10 MG TAB PO (10:00)
[2018-09-08] MEDS: LEVETIRACETAM 500 MG TAB PO ×2 (10:01→20:57)
[2018-09-08] MEDS: BUSPIRONE 5 MG TAB PO ×2 (10:01→20:57)
[2018-09-08] MEDS ORDERED: ALPRAZOLAM 0.5 MG TAB PO (10:30)
[2018-09-08] MEDS ORDERED: ALBUMIN HUMAN 25% 100 ML IV (16:30)
[2018-09-08 17:45] LABS: HEMOGLOBIN 9.7 g/dl (12.0-16.0); MEAN CORPUSCULAR HEMOGLOBIN 26.9 pg (29.0-33.0); MEAN CORPUSCULAR HGB CONC 31.3 g/dl (32.0-37.0); MEAN CORPUSCULAR VOLUME 86.1 fl (82.0-101.0); MEAN PLATELET VOLUME 9.5 fl (7.4-10.4); PLATELET COUNT 264 10^3/UL (140-415)
[2018-09-08 17:45] LABS: WHITE BLOOD COUNT 3.1 10^3/ul (4.8-10.8)
[2018-09-08 17:49] LABS: POSITIVE DIFF @See below
[2018-09-08 17:50] LABS: ADD MAN DIFF? YES
[2018-09-08 18:11] LABS: ANION GAP 20 (5-13); BLOOD UREA NITROGEN 59 mg/dl (7-20); CALCIUM 8.3 mg/dl (8.4-10.2); CARBON DIOXIDE 21 mmol/L (21-31); CHLORIDE 95 mmol/L (97-110); CREATININE 6.43 mg/dl (0.44-1.00); Estimated GFR 8 mL/min (>60); GLUCOSE 128 mg/dl (70-220); POTASSIUM 5.3 mmol/L (3.5-5.1); SODIUM 136 mmol/L (135-144)
[2018-09-08 18:20] LABS: ANISOCYTOSIS 1+ (0-0); BAND NEUTROPHILS % (M) 1 % (0-4); BASOPHILS % (M) 1 % (0-2); ECHINOCYTOSIS 1+ (0-0); ELLIPTO 1+ (0-0); EOSINOPHILS % (M) 5 % (0-7); GIANT THROMBO% (M) 3 % (0-0); LYMPHOCYTES #M 0.7 10^3/ul (0.8-2.9); LYMPHOCYTES % (M) 23 % (15-51); MONOCYTE #M 0.2 10^3/ul (0.3-0.9); MONOCYTES % (M) 9 % (0-11); OVALOCYTES 1+ (0-0); PLATELET MORPHOLOGY COMMENT @See below; POIKILOCYTOSIS 1+ (0-0); POLYCHROMASIA 3+ (0-0); SCHISTOCYTES 1+ (0-0); SEG NEUT #M 1.9 10^3/ul (1.6-7.5); SEGMENTED NEUTROPHILS (M) % 61 % (39-77); SMUDGE%M 24 % (0-0); SPHEROCYTES 1+ (0-0)
[2018-09-08] MEDS: DIPHENHYDRAMINE 50 MG CAP PO ×2 (18:32→19:54)
[2018-09-08] MEDS: MELATONIN 5 MG TABLET PO (20:57)
[2018-09-08] MEDS: DIPHENHYDRAMINE 50 MG INJ IM (21:18)
[2018-09-09] MEDS ORDERED: AMLODIPINE 5 MG TAB PO (09:00)
== END 2018-09-08 22:20 | DRG 682 ==
LOC: PP2 08-22 13:38 → 5EC 08-26 06:04 → E/R 00:51 → 6WM 08-23 20:54 → PP2 08-20 16:10 → TEL 04:36
PROC: 5A1D70Z Performance of Urinary Filtration, Intermittent, Less than 6 Hours Per Day (ICD-10-PCS; principal; 2018-08-17)
DX: I12.0 Hypertensive chronic kidney disease with stage 5 chronic kidney disease or end stage renal disease (principal); N18.6 End stage renal disease; E87.2 Acidosis; I47.2 Ventricular tachycardia; D63.1 Anemia in chronic kidney disease; E87.5 Hyperkalemia; E83.39 Other disorders of phosphorus metabolism; F32.9 Major depressive disorder, single episode, unspecified; F17.200 Nicotine dependence, unspecified, uncomplicated; F41.9 Anxiety disorder, unspecified; H54.3 Unqualified visual loss, both eyes; I51.7 Cardiomegaly; I49.9 Cardiac arrhythmia, unspecified; I35.9 Nonrheumatic aortic valve disorder, unspecified; J44.9 Chronic obstructive pulmonary disease, unspecified; L29.9 Pruritus, unspecified; M54.5 Low back pain; Z99.2 Dependence on renal dialysis; Z91.15 Patient's noncompliance with renal dialysis
CPT/HCPCS: 71045; 80048; 80053; 80061; 80202; 82306; 82550; 82553; 82728; 82962; 83036; 83540; 83735; 83880; 84100; 84443; 84484; 85025; 85610; 85730; 86704; 86706; 86709; 86803; 87040-91; 87340; 90935; 93005; 93306; 94640; 97116; 97162; 99285-25; G0378

== ENCOUNTER 2018-11-09 02:20 | Inpatient (IN) | payer MEDICARE, MEDICAID, OTHER ==
[2018-11-09 03:32] LABS: ADD MAN DIFF? NO
[2018-11-09 04:00] LABS: ALANINE AMINOTRANSFERASE 28 IU/L (13-69); ALBUMIN 4.7 g/dl (3.3-4.9); ALBUMIN/GLOBULIN RATIO 1.14; ALKALINE PHOSPHATASE 324 IU/L (42-121); ANION GAP 18 (5-13); ASPARTATE AMINO TRANSFERASE 37 IU/L (15-46); BILIRUBIN,INDIRECT 0.4 mg/dl (0-1.1); BILIRUBIN,TOTAL 0.4 mg/dl (0.2-1.3); BLOOD UREA NITROGEN 58 mg/dl (7-20); CALCIUM 9.3 mg/dl (8.4-10.2); CARBON DIOXIDE 28 mmol/L (21-31); CHLORIDE 94 mmol/L (97-110); CREATININE 8.03 mg/dl (0.44-1.00); Estimated GFR 5 mL/min (>60); GLUCOSE 107 mg/dl (70-220); POTASSIUM 4.4 mmol/L (3.5-5.1); SODIUM 140 mmol/L (135-144); TOTAL PROTEIN 8.8 g/dl (6.1-8.1)
[2018-11-09 04:03] LABS: BASOPHIL # 0.1 10^3/ul (0.0-0.1); BASOPHILS % 1.3 % (0.0-2.0); EOSINOPHILS # 0.3 10^3/ul (0.0-0.5); HEMATOCRIT 35.2 % (37.0-47.0); HEMOGLOBIN 10.7 g/dl (12.0-16.0); LYMPHOCYTES # 0.6 10^3/ul (0.8-2.9); LYMPHOCYTES % 13.4 % (15.0-51.0); MEAN CORPUSCULAR HEMOGLOBIN 29.2 pg (29.0-33.0); MEAN CORPUSCULAR HGB CONC 30.4 g/dl (32.0-37.0); MEAN CORPUSCULAR VOLUME 96.2 fl (82.0-101.0); MEAN PLATELET VOLUME 9.8 fl (7.4-10.4); MONOCYTE # 0.4 10^3/ul (0.3-0.9); NEUTROPHIL # 3.2 10^3/ul (1.6-7.5); NEUTROPHILS % 68.9 % (39.0-77.0); PLATELET COUNT 170 10^3/UL (140-415); RED BLOOD COUNT 3.66 10^6/ul (4.20-5.40); RED CELL DISTRIBUTION WIDTH 20.2 % (11.5-14.5)
[2018-11-09 04:03] LABS: WHITE BLOOD COUNT 4.7 10^3/ul (4.8-10.8)
[2018-11-09] MEDS: ONDANSETRON 4 MG INJ IV (04:07)
[2018-11-09 04:11] LABS: TROPONIN-I 0.038 ng/ml (0.000-0.120)
[2018-11-09] MEDS: LORAZEPAM 2 MG INJ IV (05:50)
[2018-11-09] MEDS ORDERED: ACETAMINOPHEN 325 MG TAB PO (12:30)
[2018-11-09] MEDS ORDERED: hydrALAzine 20 MG INJ IV (12:30)
[2018-11-09] MEDS ORDERED: NACL 0.9% 3 ML SYG IV (12:30)
[2018-11-09] MEDS ORDERED: ONDANSETRON 4 MG INJ IV (12:30)
[2018-11-09] MEDS: ASPIRIN 81 MG TAB PO ×2 (12:42→13:06)
[2018-11-09] MEDS: ALPRAZOLAM 0.25 MG TAB PO (13:06)
[2018-11-09] MEDS ORDERED: LIDOCAINE 1% (MDV) 20 ML INJ INJ (14:30)
[2018-11-09 15:23] LABS: HEPATITIS B SURFACE ANTIBODY POSITIVE (NEGATIVE)
[2018-11-09 15:26] LABS: HEPATITIS B SURFACE ANTIGEN NEGATIVE (NEGATIVE)
[2018-11-09 17:09] LABS: CREATINE KINASE 53 IU/L (23-200)
[2018-11-09 17:21] LABS: CK INDEX 2.6; CK-MB 1.37 ng/ml (0.0-2.4); TROPONIN-I 0.021 ng/ml (0.000-0.120)
[2018-11-09 19:42] LABS: MAGNESIUM 2.4 mg/dl (1.7-2.5)
[2018-11-09] MEDS: HYDROCODONE/APAP (5/325) TAB PO (21:19)
[2018-11-09] MEDS: ATORVASTATIN 40 MG TAB PO (21:19)
[2018-11-09] MEDS: HEPARIN 5,000 UNIT/1 ML VIAL SC (21:26)
[2018-11-09 21:52] LABS: CREATINE KINASE 57 IU/L (23-200)
[2018-11-09 22:02] LABS: CK INDEX 2.3; CK-MB 1.33 ng/ml (0.0-2.4)
[2018-11-10] MEDS: ALPRAZOLAM 0.25 MG TAB PO ×2 (00:26→10:15)
[2018-11-10] MEDS ORDERED: DIPHENHYDRAMINE 50 MG CAP (00:44)
[2018-11-10] MEDS ORDERED: DIPHENHYDRAMINE 50 MG CAP PO (01:00)
[2018-11-10 07:14] LABS: ADD MAN DIFF? NO
[2018-11-10 07:21] LABS: BASOPHIL # 0.1 10^3/ul (0.0-0.1); BASOPHILS % 2.2 % (0.0-2.0); EOSINOPHILS # 0.3 10^3/ul (0.0-0.5); EOSINOPHILS % 8.1 % (0.0-7.0); HEMATOCRIT 33.5 % (37.0-47.0); HEMOGLOBIN 10.2 g/dl (12.0-16.0); LYMPHOCYTES # 0.9 10^3/ul (0.8-2.9); LYMPHOCYTES % 22.5 % (15.0-51.0); MEAN CORPUSCULAR HEMOGLOBIN 29.1 pg (29.0-33.0); MEAN CORPUSCULAR HGB CONC 30.4 g/dl (32.0-37.0); MEAN CORPUSCULAR VOLUME 95.4 fl (82.0-101.0); MEAN PLATELET VOLUME 9.8 fl (7.4-10.4); MONOCYTE # 0.5 10^3/ul (0.3-0.9); MONOCYTES % 10.8 % (0.0-11.0); NEUTROPHIL # 2.4 10^3/ul (1.6-7.5); NEUTROPHILS % 56.2 % (39.0-77.0); PLATELET COUNT 183 10^3/UL (140-415); RED BLOOD COUNT 3.51 10^6/ul (4.20-5.40); RED CELL DISTRIBUTION WIDTH 20.4 % (11.5-14.5)
[2018-11-10 07:21] LABS: WHITE BLOOD COUNT 4.2 10^3/ul (4.8-10.8)
[2018-11-10 07:31] LABS: HEMOGLOBIN A1C 5.2 % (0-5.9)
[2018-11-10 07:43] LABS: ANION GAP 16 (5-13); BLOOD UREA NITROGEN 49 mg/dl (7-20); CALCIUM 8.9 mg/dl (8.4-10.2); CARBON DIOXIDE 27 mmol/L (21-31); CHLORIDE 95 mmol/L (97-110); CHOL/HDL RATIO 2.6 RATIO; CHOLESTEROL 86 mg/dl (100-200); CREATININE 6.13 mg/dl (0.44-1.00); Estimated GFR 7 mL/min (>60); GLUCOSE 101 mg/dl (70-220); HDL CHOLESTEROL 33 mg/dl (37-92); LDL CHOLESTEROL,CALCULATED 32 mg/dl; MAGNESIUM 2.3 mg/dl (1.7-2.5); PHOSPHORUS 5.9 mg/dl (2.5-4.9); POTASSIUM 4.1 mmol/L (3.5-5.1); SODIUM 138 mmol/L (135-144); TRIGLYCERIDES 104 mg/dl (0-149)
[2018-11-10] MEDS: ASPIRIN 81 MG TAB PO (10:15)
[2018-11-10] MEDS: HEPARIN 5,000 UNIT/1 ML VIAL SC (10:28)
== END 2018-11-10 13:55 | disposition home or self-care (01) | DRG 312 ==
LOC: E/R 02:20 → TEL 06:12
PROC: 5A1D70Z Performance of Urinary Filtration, Intermittent, Less than 6 Hours Per Day (ICD-10-PCS; principal; 2018-11-09)
DX: R55 Syncope and collapse (principal); N18.6 End stage renal disease; I12.0 Hypertensive chronic kidney disease with stage 5 chronic kidney disease or end stage renal disease; G93.40 Encephalopathy, unspecified; D63.1 Anemia in chronic kidney disease; Z99.2 Dependence on renal dialysis; E78.5 Hyperlipidemia, unspecified; F41.9 Anxiety disorder, unspecified; F41.0 Panic disorder [episodic paroxysmal anxiety]; L29.9 Pruritus, unspecified; Z85.3 Personal history of malignant neoplasm of breast; Z90.13 Acquired absence of bilateral breasts and nipples; Z86.73 Personal history of transient ischemic attack (TIA), and cerebral infarction without residual deficits
CPT/HCPCS: 70450; 80048; 80053; 80061; 82550; 82553; 83036; 83735; 84100; 84484; 85025; 86706; 87340; 90935; 93005; 93306; 93880; 96374; 96375; 99285-25

== ENCOUNTER 2018-11-30 15:13 | Emergency (ER) | payer MEDICARE, MEDICAID ==
[2018-11-30] MEDS: HYDROCODONE/APAP (5/325) TAB PO (16:24)
== END 2018-11-30 19:25 | disposition home or self-care (01) ==
LOC: FTE 15:13
DX: S01.01XA Laceration without foreign body of scalp, initial encounter (principal); I12.0 Hypertensive chronic kidney disease with stage 5 chronic kidney disease or end stage renal disease; N18.6 End stage renal disease; W01.0XXA Fall on same level from slipping, tripping and stumbling without subsequent striking against object, initial encounter; Y92.9 Unspecified place or not applicable; Z86.73 Personal history of transient ischemic attack (TIA), and cerebral infarction without residual deficits; Z99.2 Dependence on renal dialysis
CPT/HCPCS: 12001; 70450; 99284-25